=== PATIENT | female | born 1935 | race Caucasian/White ===

== ENCOUNTER 2016-12-01 16:46 | Emergency (ER) | payer OTHER, MEDICARE, MEDICAID ==
[~2016-12-01] VITALS: Ht 157.5 cm; Wt 65.9 kg
[2016-12-01 16:51] VITALS: BP 139/79; PULSE 73; RESP 18; O2SAT 96
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
[2016-12-01] MEDS ORDERED: 0.9% Sodium Chloride 1,000 ML IV ONE (17:06)
[2016-12-01] MEDS ORDERED: Ondansetron 2 mg/mL 2 mL Inj IVPUSH PRN (17:10)
[2016-12-01 17:34] LABS: BASOPHILS % (AUTO) 0.1 % (0-3); MONOCYTES % (AUTO) 9.7 % (4-12); Mean Corpuscular Hemoglobin 29.6 pg (27.0-35.0); NEUTROPHILS % (AUTO) 59.9 % (40-74); Platelet Count 251 bil/L (150-400)
[2016-12-01] MEDS: HYDROmorphone 0.5 mg/0.5 mL iSecure Syringe IVPUSH PRN ×3 (17:52→19:40)
[2016-12-01 17:53] LABS: INR 0.96 ratio
[2016-12-01 17:57] VITALS: BP 141/91; PULSE 73; RESP 16; O2SAT 97
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
[2016-12-01 18:10] LABS: Magnesium 1.8 mg/dL (1.6-2.6); TROPONIN T < 0.010 ug/L (0.0-0.011)
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
[2016-12-01 18:29] LABS: Lipase 63 U/L (13-60)
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
[2016-12-01 18:40] LABS: APPEARANCE,URINE HAZY (CLEAR,HAZY); COLOR,URINE DARK YELLOW (YELLOW); OCCULT BLOOD,URINE NEGATIVE (NEGATIVE); UROBILINOGEN,URINE NORMAL (NORMAL)
[2016-12-01 18:41] VITALS: BP 143/77; PULSE 72; RESP 17; O2SAT 99
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
== END 2016-12-01 22:40 | disposition home or self-care (01) ==
LOC: SED 16:46 → EDBD 16:46 → SED 22:40
DX: R10.12 Left upper quadrant pain (principal); V47.6XXA Car passenger injured in collision with fixed or stationary object in traffic accident, initial encounter; Y93.89 Activity, other specified; Y92.410 Unspecified street and highway as the place of occurrence of the external cause; Y99.8 Other external cause status; R07.81 Pleurodynia; I10 Essential (primary) hypertension; M50.30 Other cervical disc degeneration, unspecified cervical region; Z88.8 Allergy status to other drugs, medicaments and biological substances
CPT/HCPCS: 36415; 70450; 71010; 71260; 72125; 72170; 73562; 74177; 76705; 80053; 81001; 82150; 83690; 83735; 84484; 85025; 85610; 85730; 86850; 93005; 96374; 96375; 96376; 99285; G0480; J1170; J2405; J7030; Q9967